=== PATIENT | female | born 1995 | race Caucasian/White ===

== ENCOUNTER 2019-10-18 11:57 | Emergency (ER) | payer OTHER ==
--- NOTE | 2019-10-18 13:26 | EDM.PDOC ---
ED HPI GENERAL MEDICAL PROBLEM - General Chief Complaint: Gastrointestinal Problem Stated Complaint: UPPER ABDOMINAL PAIN Time Seen by Provider: 10/18/19 13:13 Source of Information: Reports: Patient History Limitations: Reports: No Limitations - History of Present Illness INITIAL COMMENTS - FREE TEXT/NARRATIVE: Patient is a 24-year-old female who presents with complaints of right upper quadrant abdominal pain that occasionally radiates through to her back for the last 5 days. She denies any associated nausea, vomiting, diarrhea, however she has had decreased appetite and she feels that her bowel movements have not been as regular as they used to be. Patient verbalizes that she has had similar symptoms in the past. First episode was when she was a teenager. She states at that time she did have a HIDA scan as well as an EGD done and there were no abnormal findings, however she was told that her gallbladder is not functioning optimally. Last episode prior to this one was in February of this year while she was . She said she had similar symptoms for approximately one week. An ultrasound was done at that time and did not find any stones in her gallbladder. She had been essentially symptom-free until 5 days ago. She does state the symptoms are worse at night and denies any correlation between eating and the pain. She states that she spoke with her [employer] and they recommend that she eat a bland diet which is what she has been doing. She last ate just prior to coming to the emergency department. Patient does not currently have a primary care provider. Abdominal Pain Score (Numeric/FACES): 2 - Related Data Allergies Allergy/AdvReac Type Severity Reaction Status Date / Time No Known Allergies Allergy Verified 10/18/19 13:04 Home Meds: Home Meds . [No Known Home Meds] 10/18/19 [History] Past Medical History - Past Health History Medical/Surgical History: Denies Medical/Surgical History Social & Family History - Family History Family Medical History: Noncontributory - Tobacco Use Smoking Status *Q: Never Smoker Second Hand Smoke Exposure: No - Caffeine Use Caffeine Use: Reports: Coffee - Recreational Drug Use Recreational Drug Use: No ED ROS GENERAL - Review of Systems Review Of Systems: See Below Constitutional: Reports: No Symptoms. Denies: Fever, Chills HEENT: Reports: No Symptoms Respiratory: Reports: No Symptoms Cardiovascular: Reports: No Symptoms. Denies: Chest Pain, Palpitations Endocrine: Reports: No Symptoms GI/Abdominal: Reports: Abdominal Pain (RUQ), Decreased Appetite. Denies: Diarrhea ED EXAM, GI/ABD - Physical Exam Exam: See Below Exam Limited By: No Limitations General Appearance: Alert, WD/WN, No Apparent Distress Respiratory/Chest: No Respiratory Distress, Lungs Clear, Normal Breath Sounds, No Accessory Muscle Use, Chest Non-Tender Cardiovascular: Normal Peripheral Pulses, Regular Rate, Rhythm, No Edema, No Murmur GI/Abdominal Exam: Normal Bowel Sounds, Soft, Tender (mild RUQ tenderness. Negative arechiga's sign.) Neurological: Alert, Oriented, Normal Cognition Psychiatric: Normal Affect, Normal Mood Skin Exam: Warm, Dry, Intact, Normal Color, No Rash Lymphatic: No Adenopathy Course - Vital Signs Last Recorded V/S: Last Vital Signs Temp 98.0 F 10/18/19 13:03 Pulse 55 L 10/18/19 13:03 Resp 15 10/18/19 13:03 BP 126/92 H 10/18/19 13:03 Pulse Ox 100 10/18/19 13:03 - Orders/Labs/Meds Orders: Active Orders 24 hr Category Date Time Status Abdomen 1V Flat [CR] Stat Exams 10/18/19 13:20 Taken Labs: Laboratory Tests 10/18/19 10/18/19 10/18/19 Range/Units 13:28 13:28 13:28 WBC 6.73 (3.98-10.04) K/mm3 RBC 4.50 (3.98-5.22) M/mm3 Hgb 14.1 (11.2-15.7) gm/dl Hct 41.4 (34.1-44.9) % MCV 92.0 (79.4-94.8) fl MCH 31.3 (25.6-32.2) pg MCHC 34.1 (32.2-35.5) g/dl RDW Std Deviation 43.6 (36.4-46.3) fL Plt Count 291 (182-369) K/mm3 MPV 8.4 L (9.4-12.3) fl Neut % (Auto) 50.4 (34.0-71.1) % Lymph % (Auto) 30.6 (19.3-51.7) % [place] % (Auto) 9.5 (4.7-12.5) % Eos % (Auto) 9.1 H (0.7-5.8) Baso % (Auto) 0.3 (0.1-1.2) % Neut # (Auto) 3.39 (1.56-6.13) K/mm3 Lymph # (Auto) 2.06 (1.18-3.74) K/mm3 [place] # (Auto) 0.64 H (0.24-0.36) K/mm3 Eos # (Auto) 0.61 H (0.04-0.36) K/mm3 Baso # (Auto) 0.02 (0.01-0.08) K/mm3 Sodium 141 (136-145) mEq/L Potassium 3.4 L (3.5-5.1) mEq/L Chloride 103 (98-107) mEq/L Carbon Dioxide 27 (21-32) mEq/L Anion Gap 14.4 (5-15) BUN 8 (7-18) mg/dL Creatinine 0.7 (0.55-1.02) mg/dL Est Cr Clr Drug Dosing 105.17 mL/min Estimated GFR (MDRD) > 60 (>60) mL/min BUN/Creatinine Ratio 11.4 L (14-18) Glucose 84 (74-106) mg/dL Calcium 8.8 (8.5-10.1) mg/dL Total Bilirubin 0.5 (0.2-1.0) mg/dL AST 17 (15-37) U/L ALT 23 (14-59) U/L Alkaline Phosphatase 95 (46-116) U/L Total Protein 7.6 (6.4-8.2) g/dl Albumin 4.0 (3.4-5.0) g/dl Globulin 3.6 gm/dL Albumin/Globulin Ratio 1.1 (1-2) Lipase 99 (73-393) U/L - Re-Assessments/Exams Free Text/Narrative Re-Assessment/Exam: Based on patient's symptoms and exam, it is possible her pain may be related to her gallbladder; however, her symptoms are quite vague. Since she has last eaten just prior to coming to the ER, an ultrasound of the gallbladder cannot be completed at this time. I have ordered lab work to include a CBC, CMP, lipase, as well as an abdomen x-ray to rule out constipation. I will consider ordering an outpatient gallbladder ultrasound. 10/18/19 14:22 Patient's labs are grossly unremarkable. Abdomen x-ray does show a moderate amount of stool in the ascending colon as well as the hepatic flexure. It is possible that her pain could be related to the stool in that area or possibly still her gallbladder. I discussed these findings with the patient. She has opted to try magnesium citrate to see if that improves her pain. She does not want to schedule the outpatient gallbladder ultrasound at this time. She will call to schedule an appointment with a primary care provider for Monday if available in case the symptoms do not resolve with the bowel cleanse. I did recommend that if she gets an appointment for Monday that she go into the appointment fasting in case they are able to work her in for an ultrasound at that time. She is in agreement with this plan. Discharge instructions as noted. Departure - Departure Time of Disposition: 14:24 Disposition: Home, Self-Care 01 Condition: Good Clinical Impression: RUQ abdominal tenderness Qualifiers: Presence of rebound: present Qualified Code(s): R10.821 - Right upper quadrant rebound abdominal tenderness - Discharge Information *PRESCRIPTION DRUG MONITORING PROGRAM REVIEWED*: No *COPY OF PRESCRIPTION DRUG MONITORING REPORT IN PATIENT EARNESTINE: No Instructions: Constipation, Adult, [id number], Abdominal Pain, Adult, Easy-to -Read Referrals: PCP,None [Primary Care Provider] - Forms: ED Department Discharge Additional Instructions: You were seen in the emergency department today for right upper abdominal pain that has been occurring for the last 5 days. Your lab results were all normal. The x-ray of her abdomen did show a moderate amount of stool in the right side of your colon. It is possible that this could be contributing to your pain , however there still possibility that your pain could be gallbladder related. I would recommend getting a bottle of magnesium citrate from the pharmacy and drinking the entire bottle. This will generally result in numerous bowel movements some of which may be loose. I would also recommend that you call today to schedule an appointment in the clinic with the next available provider. The number for the [facility] is [phone]. If the pain does not resolve after the colon cleanse, I recommend that you follow up with the provider and discuss an outpatient ultrasound of your gallbladder. I recommend that you maintain a bland, low-fat diet. If you experience any new or worsening symptoms, please not hesitate to return to the emergency department. Sepsis Event Note - Evaluation Sepsis Screening Result: No Definite Risk - Focused Exam Date Exam was Performed: 10/19/19 Time Exam was Performed: 07:17 - My Orders Last 24 Hours: My Active Orders 10/18/19 13:20 Abdomen 1V Flat [CR] Stat - Assessment/Plan Last 24 Hours: My Active Orders 10/18/19 13:20 Abdomen 1V Flat [CR] Stat
--- NOTE | 2019-10-21 07:12 | CR ---
Abdomen: Supine view of the abdomen was obtained. Comparison: No prior abdominal x-ray. Slight increased stool is seen throughout the colon. Bowel gas pattern is otherwise unremarkable. Calcifications are identified within the pelvis compatible with phleboliths. No discrete bony abnormality is noted. Impression: 1. Slight increased stool within the colon. Diagnostic code #2 This report was dictated in [place] Standard Time
== END 2019-10-18 14:43 | disposition home or self-care (01) ==
LOC: JD.ED 11:57
DX: R10.821 Right upper quadrant rebound abdominal tenderness (principal)
CPT/HCPCS: 36415; 74018; 74018-26; 80053; 83690; 85025; 99284-25